=== PATIENT | male | born 1950 | race Caucasian/White ===

== ENCOUNTER 2017-06-16 07:59 | Inpatient (IN) ==
[2017-06-16] MEDS ORDERED: GLUCAGON 1 MG VIAL IM PRN ×2 (09:35)
[2017-06-16] MEDS ORDERED: DEXTROSE 50% 25 GM/50 ML VIAL IV PRN ×2 (09:35)
[2017-06-16] MEDS ORDERED: SODIUM CHLORIDE 0.9% 1,000 ML IV SCH (10:00)
[2017-06-16] MEDS ORDERED: CHLORHEXIDINE 4% SOLN 118 ML BOTTLE TOP SCH (15:00)
[2017-06-16] MEDS: oxyCODONE/ACETAMINOPHEN 5-325 MG TABLET PO PRN (19:50)
[2017-06-16] MEDS ORDERED: ZALEPLON 5 MG CAPSULE PO PRN (21:00)
[2017-06-16] MEDS: CHLORHEXIDINE 0.12% ORAL RINSE 60 ML BOTTLE SWISH/SPIT SCH (22:40)
[2017-06-17 03:11] LABS: Basophils % 0.7 % (0.0-0.8); Eosinophils # 0.2 10*3/uL (0.0-0.87); Hematocrit 36.9 VOL% (42.0-52.0); Hemoglobin 13.4 GM/DL (14.0-18.0); Immature Granulocytes % 0.5 %; Immature Granulocytes Absolute 0.03 #; Lymphocytes # 2.1 10*3/uL (1.4-4.0); Lymphocytes % 37.9 % (21.2-54.2); Mean Corpuscular HGB Conc 36.3 GM/DL (32-36); Mean Corpuscular Hemoglobin 31 PG (27-34); Mean Corpuscular Volume 84.8 FL (87-102); Mean Platelet Volume 10.3 FL (9.6-12.0); Monocytes # 0.4 10*3/uL (0.11-0.8); Monocytes % 7.6 % (1.7-12.7); Neutrophils # 2.8 10*3/uL (1.4-7.4); Neutrophils % 50.3 % (38.7-73.9); Platelet Count 225 T/CUMM (130-400); Red Blood Count 4.35 MC/CUMM (3.8-5.5); White Blood Count 5.7 T/CUMM (4-12)
[2017-06-17 04:05] LABS: ABG Base Excess 0.9 MMOL/L (-2.5-2.5); ABG HCO3 25.1 MMOL/L (20-26); ABG Oxygen Saturation 94.9 % (95-100); ABG PCO2 49.2 MM HG (35-48); ABG PH 7.353 (7.35-7.45); ABG PO2 74.5 MM HG (80-95); ABG TCO2 23.8 MMOL/L (23-27); Allen Test Positive; Pt O2 Delivery Device Room Air
[2017-06-17 04:14] LABS: Alanine Aminotransferase 20 U/L (16-61); Albumin 3.3 G/DL (3.4-5.0); Alkaline Phosphatase 111 U/L (45-117); Aspartate Amino Transferase 9 U/L (0-37); Bilirubin,Total < 0.39 MG/DL (0.2-1.0); Blood Urea Nitrogen 16 MG/DL (7-18); Calcium 8.8 MG/DL (8.5-10.1); Glucose 259 MG/DL (74-106); Osmolality,Calculated 284.7 MOS/KG (273-304); Potassium 4.3 MMOL/L (3.5-5.1); Sodium 138 MMOL/L (136-145); Total Protein 6.3 G/DL (6.4-8.3)
[2017-06-17] MEDS: CHOLESTYRAMINE/ASPARTAME 4 GM PACK PO SCH (09:21)
[2017-06-17] MEDS: sitaGLIPtin 100 MG TABLET PO SCH (09:22)
[2017-06-17] MEDS: METOPROLOL SUCCINATE XL 100 MG TABLET PO SCH (09:22)
[2017-06-17] MEDS: amLODIPine 10 MG TABLET PO SCH (09:22)
[2017-06-17] MEDS: CHLORHEXIDINE 0.12% ORAL RINSE 60 ML BOTTLE SWISH/SPIT SCH ×2 (09:22→21:40)
[2017-06-17] MEDS: ASPIRIN EC 325 MG TABLET PO SCH (09:22)
[2017-06-17] MEDS ORDERED: DIAZEPAM 5 MG TABLET PO ONE (12:52)
[2017-06-17] MEDS ORDERED: FAMOTIDINE 20 MG TABLET PO ONE (12:52)
[2017-06-17] MEDS: INSULIN REGULAR 100 UNIT/ML SUBCUT SCH ×3 (13:15→21:39)
[2017-06-17] MEDS: ATORVASTATIN 40 MG TABLET PO SCH (21:39)
[2017-06-18] MEDS: sitaGLIPtin 100 MG TABLET PO SCH (09:22)
[2017-06-18] MEDS: METOPROLOL SUCCINATE XL 100 MG TABLET PO SCH (09:22)
[2017-06-18] MEDS: ASPIRIN EC 325 MG TABLET PO SCH (09:22)
[2017-06-18] MEDS: amLODIPine 10 MG TABLET PO SCH (09:22)
[2017-06-18] MEDS: CHOLESTYRAMINE/ASPARTAME 4 GM PACK PO SCH (09:22)
[2017-06-18] MEDS: CHLORHEXIDINE 0.12% ORAL RINSE 60 ML BOTTLE SWISH/SPIT SCH ×2 (09:23→20:56)
[2017-06-18] MEDS: INSULIN REGULAR 100 UNIT/ML SUBCUT SCH ×4 (09:23→20:47)
[2017-06-18] MEDS: CHLORHEXIDINE 4% SOLN 118 ML BOTTLE TOP SCH ×3 (15:05→22:00)
[2017-06-18] MEDS: ATORVASTATIN 40 MG TABLET PO SCH (20:47)
[2017-06-18] MEDS: oxyCODONE/ACETAMINOPHEN 5-325 MG TABLET PO PRN (20:58)
[2017-06-19] MEDS ORDERED: SODIUM CHLORIDE 0.9% 1,000 ML IV SCH
[2017-06-19] MEDS ORDERED: VANCOMYCIN 1,000 MG VIAL ONE (04:54)
[2017-06-19] MEDS ORDERED: PAPAVERINE 60 MG/2 ML VIAL ONE (04:54)
[2017-06-19] MEDS ORDERED: DIAZEPAM 5 MG TABLET PO ONE (05:00)
[2017-06-19] MEDS ORDERED: FAMOTIDINE 20 MG TABLET PO ONE (05:00)
[2017-06-19] MEDS: amLODIPine 10 MG TABLET PO SCH ×2 (05:58→10:21)
[2017-06-19] MEDS: METOPROLOL SUCCINATE XL 100 MG TABLET PO SCH ×2 (05:58→10:21)
[2017-06-19] MEDS ORDERED: CEFUROXIME INJ 1,500 MG in SODIUM CHLORIDE 0.9% 50 ML IV ONE (06:00)
[2017-06-19] MEDS ORDERED: TRANEXAMIC ACID 1,000 MG/10 ML VIAL IV ONE (06:03)
[2017-06-19 07:42] LABS: ABG Base Excess 1.2 MMOL/L (-2.5-2.5); ABG HCO3 25.5 MMOL/L (20-26); ABG PCO2 36.3 MM HG (35-48); ABG PH 7.445 (7.35-7.45); ABG TCO2 21.6 MMOL/L (23-27); Glucose Heart Surgery 186 MG/DL (74-106); Hematocrit Heart Surgery 40.2 PERCENT (42-52); Hemoglobin Heart Surgery 13.1 G/DL (14.0-18.0); Ionized Calcium Arterial 1.17 MMOL/L (1.21-1.46); PCO2 Patient Temp Arterial 36.3 MMHG; PH Patient Temp Arterial 7.445; Patient Temperature 37 CELCIUS; Potassium Heart/CVR 4.3 MMOL/L (3.5-5.1); Sodium Heart/CVR 139 MMOL/L (135-145)
[2017-06-19 07:45] LABS: Apearance,Urine CLEAR (Clear); Bilirubin,Urine Negative (Negative); Blood, Urine Small mg/dL (Negative); Glucose,Urine (UA) Negative (Negative); Ketones,Urine Negative (Negative); Mucus,Urine Occasional /LPF (Occasional); Nitrite,Urine Negative (Negative); Protein,Urine Negative; RBC,Urine 3 /HPF (0-4); Squamous Epithelial Cell,Urine Occasional /HPF (0-10); Urine Color Straw (Yellow); Urine Specific Gravity 1.008 (1.001-1.035); Urine Urobilinogen < 2.0 EU/DL (0.2-1.0); WBC,Urine <1 /HPF (0-6)
[2017-06-19 09:03] LABS: Hematocrit Heart Surgery 23.6 PERCENT (42-52); Hemoglobin Heart Surgery 7.6 G/DL (14.0-18.0); PH Patient Temp Venous 7.453; PO2 Patient Temp Venous 29.9 MM HG; VBG Base Excess 1.5 MEQ/L (0-4); VBG HCO3 25.5 MEQ/L (24-28); VBG Oxygen Saturation 73.2 %; VBG PCO2 41.6 MMHG (41-51); VBG PH 7.409; VBG PO2 36.9 MMHG (17-40)
[2017-06-19 09:05] LABS: Potassium Heart/CVR 6.1 MMOL/L (3.5-5.1)
[2017-06-19 09:31] LABS: Hematocrit Heart Surgery 27.8 PERCENT (42-52); PCO2 Patient Temp Venous 35.1 MM HG; PH Patient Temp Venous 7.454; Potassium Heart/CVR 6.3 MMOL/L (3.5-5.1); VBG Base Excess 1.1 MEQ/L (0-4); VBG HCO3 25.2 MEQ/L (24-28); VBG PCO2 42.6 MMHG (41-51); VBG PH 7.396; VBG PO2 46.2 MMHG (17-40)
[2017-06-19] MEDS ORDERED: PHENYLEPHRINE DRIP 40 MG/250 ML PREMIX IV ONE (09:35)
[2017-06-19] MEDS ORDERED: POTASSIUM CHLORIDE RIDER 100 ML IV ONE (09:35)
[2017-06-19] MEDS ORDERED: ALBUMIN 5% 12.5 GM/250 ML VIAL IV ONE (09:36)
[2017-06-19] MEDS ORDERED: EPINEPHrine 1 MG/10 ML SYRINGE ONE (09:54)
[2017-06-19] MEDS ORDERED: LIDOCAINE 100 MG/5 ML SYRINGE ONE (09:55)
[2017-06-19] MEDS ORDERED: SODIUM BICARBONATE 50 MEQ/50 ML SYRINGE IV ONE ×2 (09:57→10:17)
[2017-06-19] MEDS ORDERED: MANNITOL 12.5 GM/50 ML VIAL IV ONE (10:17)
[2017-06-19] MEDS ORDERED: PHENYLEPHRINE DRIP 20 MG/250 ML PREMIX IV ONE ×2 (10:17→12:02)
[2017-06-19] MEDS ORDERED: HEPARIN 10,000 UNIT/10 ML VIAL ONE (10:17)
[2017-06-19] MEDS ORDERED: methylPREDNISolone SOD SUC 1,000 MG/8 ML VIAL ONE (10:17)
[2017-06-19] MEDS ORDERED: MAGNESIUM SULFATE 1 GM/2 ML VIAL ONE (10:17)
[2017-06-19] MEDS ORDERED: PROTAMINE SULFATE 250 MG/25 ML VIAL IV ONE (10:17)
[2017-06-19] MEDS ORDERED: DEXTROSE 5% KCL 20 MEQ 20 MEQ/1,000 ML BAG IV ONE (10:17)
[2017-06-19] MEDS ORDERED: ALBUMIN 25% 25 GM/100 ML VIAL IV ONE (10:17)
[2017-06-19] MEDS ORDERED: FUROSEMIDE 20 MG/2 ML VIAL ONE (10:18)
[2017-06-19] MEDS: ASPIRIN EC 325 MG TABLET PO SCH (10:20)
[2017-06-19] MEDS: INSULIN REGULAR 100 UNIT/ML SUBCUT SCH ×2 (10:20→13:37)
[2017-06-19] MEDS: CHOLESTYRAMINE/ASPARTAME 4 GM PACK PO SCH (10:21)
[2017-06-19] MEDS: sitaGLIPtin 100 MG TABLET PO SCH (10:21)
[2017-06-19] MEDS: CHLORHEXIDINE 4% SOLN 118 ML BOTTLE TOP SCH (10:21)
[2017-06-19] MEDS: CHLORHEXIDINE 0.12% ORAL RINSE 60 ML BOTTLE SWISH/SPIT SCH ×2 (10:21→21:36)
[2017-06-19 10:28] LABS: ABG Base Excess 0.9 MMOL/L (-2.5-2.5); ABG HCO3 25.2 MMOL/L (20-26); ABG Oxygen Saturation 98.6 % (95-100); ABG PCO2 38.2 MM HG (35-48); ABG PH 7.426 (7.35-7.45); ABG TCO2 22.9 MMOL/L (23-27); Glucose Heart Surgery 270 MG/DL (74-106); Hematocrit Heart Surgery 30.1 PERCENT (42-52); Hemoglobin Heart Surgery 9.7 G/DL (14.0-18.0); Ionized Calcium Arterial 1.21 MMOL/L (1.21-1.46); PCO2 Patient Temp Arterial 38.2 MMHG; PH Patient Temp Arterial 7.426; Patient Temperature 37 CELCIUS; Potassium Heart/CVR 5.1 MMOL/L (3.5-5.1); Sodium Heart/CVR 130 MMOL/L (135-145)
[2017-06-19] MEDS ORDERED: THROMBIN TOPICAL (RECOMBINANT) 5,000 UNIT VIAL TOP ONE (10:39)
[2017-06-19] MEDS ORDERED: INSULIN REGULAR DRIP 100 ML IV ONE (10:45)
[2017-06-19] MEDS: LACTATED RINGERS 1,000 ML IV PRN ×2 (12:00→14:38)
[2017-06-19] MEDS ORDERED: PROTAMINE SULFATE 50 MG/5 ML VIAL IV ONE ×2 (12:00)
[2017-06-19] MEDS ORDERED: CALCIUM CHLORIDE 1,000 MG/10 ML VIAL IV ONE (12:02)
[2017-06-19] MEDS ORDERED: SEVOFLURANE 1 UNIT/15 MINUTE INH ONE (12:02)
[2017-06-19] MEDS ORDERED: SUFentanil 250 MCG/5 ML AMP ONE (12:02)
[2017-06-19] MEDS ORDERED: MIDAZOLAM 10 MG/2 ML VIAL ONE (12:03)
[2017-06-19] MEDS ORDERED: VECURONIUM 10 MG VIAL IV ONE (12:03)
[2017-06-19] MEDS ORDERED: ETOMIDATE 20 MG/10 ML VIAL IV ONE (12:03)
[2017-06-19] MEDS ORDERED: SODIUM CHLORIDE 0.9% 200 ML IV ONE (12:03)
[2017-06-19] MEDS ORDERED: NITROGLYCERIN DRIP 50 MG/250 ML BOTTLE IV ONE (12:03)
[2017-06-19] MEDS ORDERED: LACTATED RINGERS 1,000 ML IV ONE (12:03)
[2017-06-19] MEDS: ALBUMIN 5% 12.5 GM in PREMIX 1 EACH IV PRN ×2 (12:30→14:35)
[2017-06-19] MEDS ORDERED: INSULIN REGULAR 100 UNIT/ML IV ONE (12:31)
[2017-06-19] MEDS ORDERED: MAGNESIUM SULF RIDER 4 GM in PREMIX 1 EACH IV PRN (12:31)
[2017-06-19] MEDS ORDERED: MAGNESIUM SULF RIDER 2 GM in PREMIX 1 EACH IV PRN (12:31)
[2017-06-19] MEDS ORDERED: MIDAZOLAM 2 MG/2 ML VIAL IV PRN (12:31)
[2017-06-19] MEDS ORDERED: DEXTROSE 50% 25 GM/50 ML VIAL IV PRN ×2 (12:31)
[2017-06-19] MEDS ORDERED: PHENYLEPHRINE DRIP 40 MG/250 ML PREMIX IV PRN (12:31)
[2017-06-19] MEDS ORDERED: ONDANSETRON 4 MG/2 ML VIAL IV PRN (12:31)
[2017-06-19] MEDS ORDERED: ACETAMINOPHEN 650 MG SUPP RECTAL PRN (12:31)
[2017-06-19] MEDS ORDERED: MORPHINE 10 MG/1 ML VIAL IV PRN (12:31)
[2017-06-19] MEDS ORDERED: NITROPRUSSIDE 100 MG in DEXTROSE 5% 250 ML IV PRN (12:31)
[2017-06-19] MEDS ORDERED: INSULIN REGULAR 100 UNIT/ML IV PRN (12:31)
[2017-06-19] MEDS ORDERED: SODIUM CHLORIDE 0.45% 1,000 ML IV SCH ×2 (12:31)
[2017-06-19] MEDS ORDERED: LACTATED RINGERS 250 ML IV PRN (12:31)
[2017-06-19] MEDS ORDERED: VECURONIUM 10 MG VIAL IV PRN ×2 (12:31)
[2017-06-19] MEDS ORDERED: MIDAZOLAM 10 MG/2 ML VIAL IV PRN (12:31)
[2017-06-19] MEDS ORDERED: CALCIUM CHLORIDE 1,000 MG/10 ML SYRINGE IV PRN (12:31)
[2017-06-19 12:42] LABS: Hematocrit 23.7 VOL% (42.0-52.0); Hemoglobin 8.8 GM/DL (14.0-18.0); Mean Corpuscular Volume 85.9 FL (87-102); Red Blood Count 2.76 MC/CUMM (3.8-5.5); White Blood Count 6.1 T/CUMM (4-12)
[2017-06-19 12:43] LABS: ABG Base Excess -0.5 MMOL/L (-2.5-2.5); ABG PCO2 32.3 MM HG (35-48); ABG PH 7.458 (7.35-7.45); ABG TCO2 21.1 MMOL/L (23-27); Basophils % 0.3 % (0.0-0.8); Eosinophils # 0.1 10*3/uL (0.0-0.87); Eosinophils % 0.8 % (0.00-10.9); Glucose Heart Surgery 245 MG/DL (74-106); Hematocrit Heart Surgery 26.4 PERCENT (42-52); Hemoglobin Heart Surgery 8.5 G/DL (14.0-18.0); Immature Granulocytes % 1.3 %; Immature Granulocytes Absolute 0.08 #; Lymphocytes # 0.8 10*3/uL (1.4-4.0); Lymphocytes % 13.3 % (21.2-54.2); Mean Corpuscular HGB Conc 37.1 GM/DL (32-36); Mean Corpuscular Hemoglobin 32 PG (27-34); Mean Platelet Volume 10.5 FL (9.6-12.0); Monocytes # 0.2 10*3/uL (0.11-0.8); Monocytes % 2.6 % (1.7-12.7); Neutrophils % 81.7 % (38.7-73.9); Platelet Count 207 T/CUMM (130-400); Potassium Heart/CVR 3.9 MMOL/L (3.5-5.1); Red Cell Distribution Width 12.2 % (9.3-17.3)
[2017-06-19] MEDS: POTASSIUM CHLORIDE RIDER 20 MEQ in PREMIX 1 EACH IV PRN ×3 (12:45→18:56)
[2017-06-19 12:49] LABS: INR 1.2; PT Patient Result 12.3 SECS; Partial Thromboplastin Time 30.4 SECS (0-40)
[2017-06-19] MEDS: INSULIN REGULAR DRIP 100 ML IV SCH ×2 (12:51→21:50)
[2017-06-19 12:55] LABS: Albumin 2.4 G/DL (3.4-5.0); Bilirubin,Total 1.2 MG/DL (0.2-1.0); Calcium 7.9 MG/DL (8.5-10.1); Magnesium 1.9 MG/DL (1.8-2.4); Osmolality,Calculated 288.4 MOS/KG (273-304); Potassium 4.3 MMOL/L (3.5-5.1); Total Protein 4.4 G/DL (6.4-8.3)
[2017-06-19] MEDS: KETOROLAC 30 MG/1 ML VIAL IV SCH ×2 (13:20→18:29)
[2017-06-19] MEDS: POTASSIUM CHLORIDE RIDER 10 MEQ in PREMIX 1 EACH IV PRN ×3 (13:20→18:40)
[2017-06-19 13:22] LABS: CKMB % 4.4 %
[2017-06-19 13:29] LABS: Troponin I Only 1.21 NG/ML (0.00-0.045)
[2017-06-19 13:55] LABS: VBG HCO3 22.1 MEQ/L (24-28); VBG Oxygen Saturation 56.9 %; VBG PCO2 47.2 MMHG (41-51); VBG PH 7.321; VBG PO2 31.4 MMHG (17-40)
[2017-06-19 14:00] LABS: ABG Base Excess -2.1 MMOL/L (-2.5-2.5); ABG HCO3 22.7 MMOL/L (20-26); ABG Oxygen Saturation 99.5 % (95-100); ABG PCO2 36.8 MM HG (35-48); ABG PH 7.393 (7.35-7.45); ABG TCO2 20.4 MMOL/L (23-27)
[2017-06-19 14:12] LABS: Glucose Heart Surgery 244 MG/DL (74-106); Potassium Heart/CVR 4.1 MMOL/L (3.5-5.1)
[2017-06-19 15:04] LABS: ABG Base Excess -2.3 MMOL/L (-2.5-2.5); ABG HCO3 22.5 MMOL/L (20-26); ABG Oxygen Saturation 98.6 % (95-100); ABG PCO2 36.8 MM HG (35-48); ABG PH 7.389 (7.35-7.45); ABG TCO2 20.2 MMOL/L (23-27); Glucose Heart Surgery 211 MG/DL (74-106); Hematocrit Heart Surgery 31.4 PERCENT (42-52); Hemoglobin Heart Surgery 10.2 G/DL (14.0-18.0); Potassium Heart/CVR 3.6 MMOL/L (3.5-5.1)
[2017-06-19] MEDS ORDERED: FUROSEMIDE 40 MG/4 ML VIAL ONE (17:23)
[2017-06-19] MEDS ORDERED: FUROSEMIDE 40 MG/4 ML VIAL IV ONE (17:37)
[2017-06-19 18:22] LABS: ABG Base Excess -2.1 MMOL/L (-2.5-2.5); ABG HCO3 22.5 MMOL/L (20-26); ABG Oxygen Saturation 93.7 % (95-100); ABG PCO2 44.8 MM HG (35-48); ABG PH 7.333 (7.35-7.45); ABG PO2 70.2 MM HG (80-95); Glucose Heart Surgery 179 MG/DL (74-106); Hematocrit Heart Surgery 28.6 PERCENT (42-52); Hemoglobin Heart Surgery 9.2 G/DL (14.0-18.0); Potassium Heart/CVR 3.6 MMOL/L (3.5-5.1)
[2017-06-19] MEDS ORDERED: DOBUTamine 500 MG/250 ML PREMIX IV SCH (19:30)
[2017-06-19] MEDS: CEFUROXIME INJ 1,500 MG in SODIUM CHLORIDE 0.9% 50 ML IV SCH (19:55)
[2017-06-19 20:13] LABS: ABG Base Excess -1.5 MMOL/L (-2.5-2.5); ABG HCO3 23.2 MMOL/L (20-26); ABG Oxygen Saturation 98.7 % (95-100); ABG PCO2 41.6 MM HG (35-48); ABG PH 7.366 (7.35-7.45); ABG TCO2 21.9 MMOL/L (23-27); Glucose Heart Surgery 159 MG/DL (74-106); Potassium Heart/CVR 4.4 MMOL/L (3.5-5.1)
[2017-06-19 20:14] LABS: Hematocrit Heart Surgery 29.1 PERCENT (42-52); Hemoglobin Heart Surgery 9.4 G/DL (14.0-18.0)
[2017-06-19 20:35] LABS: CKMB % 3.6 %
[2017-06-19 20:37] LABS: Troponin I Only 2.35 NG/ML (0.00-0.045)
[2017-06-19] MEDS: MORPHINE 2 MG/1 ML SYRINGE IV PRN (21:10)
[2017-06-20 00:39] LABS: ABG Base Excess 0.1 MMOL/L (-2.5-2.5); ABG HCO3 24.4 MMOL/L (20-26); ABG PCO2 38.2 MM HG (35-48); ABG PH 7.423 (7.35-7.45); ABG PO2 126.1 MM HG (80-95); ABG TCO2 25.6 MMOL/L (23-27); Glucose Heart Surgery 104 MG/DL (74-106); Potassium Heart/CVR 4.2 MMOL/L (3.5-5.1)
[2017-06-20] MEDS: KETOROLAC 30 MG/1 ML VIAL IV SCH ×4 (01:03→16:06)
[2017-06-20] MEDS: MORPHINE 2 MG/1 ML SYRINGE IV PRN (01:07)
[2017-06-20 03:16] LABS: ABG Base Excess -1.5 MMOL/L (-2.5-2.5); ABG HCO3 23.1 MMOL/L (20-26); ABG Oxygen Saturation 97.1 % (95-100); ABG PCO2 46.3 MM HG (35-48); ABG PH 7.333 (7.35-7.45); ABG PO2 87.4 MM HG (80-95); ABG TCO2 22.4 MMOL/L (23-27); Glucose Heart Surgery 174 MG/DL (74-106); Hematocrit Heart Surgery 32.5 PERCENT (42-52); Hemoglobin Heart Surgery 10.5 G/DL (14.0-18.0); Potassium Heart/CVR 5.6 MMOL/L (3.5-5.1)
[2017-06-20 04:07] LABS: ABG Base Excess -1.9 MMOL/L (-2.5-2.5); ABG HCO3 22.8 MMOL/L (20-26); ABG PCO2 43.9 MM HG (35-48); ABG PH 7.344 (7.35-7.45); ABG PO2 79.1 MM HG (80-95); ABG TCO2 21.7 MMOL/L (23-27); Glucose Heart Surgery 166 MG/DL (74-106); Hematocrit Heart Surgery 32.9 PERCENT (42-52); Hemoglobin Heart Surgery 10.6 G/DL (14.0-18.0); Potassium Heart/CVR 5.4 MMOL/L (3.5-5.1)
[2017-06-20 04:13] LABS: Basophils % 0.1 % (0.0-0.8); Hematocrit 29.2 VOL% (42.0-52.0); Hemoglobin 10.7 GM/DL (14.0-18.0); Immature Granulocytes % 0.4 %; Immature Granulocytes Absolute 0.04 #; Lymphocytes # 0.7 10*3/uL (1.4-4.0); Lymphocytes % 7.2 % (21.2-54.2); Mean Corpuscular HGB Conc 36.6 GM/DL (32-36); Mean Corpuscular Hemoglobin 32 PG (27-34); Mean Corpuscular Volume 85.9 FL (87-102); Mean Platelet Volume 10.8 FL (9.6-12.0); Monocytes # 0.2 10*3/uL (0.11-0.8); Monocytes % 1.9 % (1.7-12.7); Neutrophils # 8.2 10*3/uL (1.4-7.4); Neutrophils % 90.4 % (38.7-73.9); Platelet Count 123 T/CUMM (130-400); Red Cell Distribution Width 13.2 % (9.3-17.3); White Blood Count 9.1 T/CUMM (4-12)
[2017-06-20 04:45] LABS: Bilirubin,Direct 0.18 MG/DL (0.0-0.20); Bilirubin,Total 0.6 MG/DL (0.2-1.0); Calcium 7.9 MG/DL (8.5-10.1); Magnesium 1.8 MG/DL (1.8-2.4); Osmolality,Calculated 285.4 MOS/KG (273-304); Potassium 5.5 MMOL/L (3.5-5.1); Total Protein 5.4 G/DL (6.4-8.3)
[2017-06-20 04:47] LABS: CKMB % 3.7 %
[2017-06-20 04:54] LABS: ABG Base Excess -1.8 MMOL/L (-2.5-2.5); ABG HCO3 22.9 MMOL/L (20-26); ABG Oxygen Saturation 97.6 % (95-100); ABG PCO2 43.2 MM HG (35-48); ABG PH 7.349 (7.35-7.45); ABG PO2 91.3 MM HG (80-95); ABG TCO2 21.6 MMOL/L (23-27); Glucose Heart Surgery 139 MG/DL (74-106); Hematocrit Heart Surgery 32.8 PERCENT (42-52); Hemoglobin Heart Surgery 10.6 G/DL (14.0-18.0); Potassium Heart/CVR 4.5 MMOL/L (3.5-5.1)
[2017-06-20 05:06] LABS: Troponin I Only 3.78 NG/ML (0.00-0.045)
[2017-06-20 05:58] LABS: ABG Base Excess -1.7 MMOL/L (-2.5-2.5); ABG HCO3 22.9 MMOL/L (20-26); ABG Oxygen Saturation 94.4 % (95-100); ABG PCO2 49.4 MM HG (35-48); ABG PH 7.311 (7.35-7.45); ABG PO2 72.9 MM HG (80-95); ABG TCO2 22.8 MMOL/L (23-27); Glucose Heart Surgery 111 MG/DL (74-106); Hematocrit Heart Surgery 32.4 PERCENT (42-52); Hemoglobin Heart Surgery 10.5 G/DL (14.0-18.0); Potassium Heart/CVR 4.2 MMOL/L (3.5-5.1)
[2017-06-20] MEDS ORDERED: MAGNESIUM SULF RIDER 4 GM in PREMIX 1 EACH IV PRN (11:03)
[2017-06-20] MEDS ORDERED: oxyCODONE/ACETAMINOPHEN 5-325 MG TABLET PO PRN (11:03)
[2017-06-20] MEDS ORDERED: ACETAMINOPHEN 325 MG TABLET PO PRN (11:03)
[2017-06-20] MEDS ORDERED: SODIUM CHLOR 0.45% KCL 20 MEQ 20 MEQ/1,000 ML BAG IV SCH (11:03)
[2017-06-20] MEDS ORDERED: DEXTROSE 50% 25 GM/50 ML VIAL IV PRN ×2 (11:03)
[2017-06-20] MEDS ORDERED: MAGNESIUM HYDROXIDE SUSP 30 ML UDCUP PO PRN (11:03)
[2017-06-20] MEDS ORDERED: GLUCAGON 1 MG VIAL IM PRN ×2 (11:03)
[2017-06-20] MEDS ORDERED: POTASSIUM CHLORIDE 20 MEQ TABLET PO PRN (11:03)
[2017-06-20] MEDS ORDERED: MAGNESIUM SULF RIDER 2 GM in PREMIX 1 EACH IV PRN (11:03)
[2017-06-20] MEDS ORDERED: ALUMINUM/MAGNES/SIMETH MAX STR 30 ML UDCUP PO PRN (11:03)
[2017-06-20] MEDS ORDERED: ONDANSETRON 4 MG/2 ML VIAL IV PRN (11:03)
[2017-06-20] MEDS: sitaGLIPtin 100 MG TABLET PO SCH (12:12)
[2017-06-20] MEDS: ASPIRIN EC 325 MG TABLET PO SCH (12:12)
[2017-06-20] MEDS: METOPROLOL SUCCINATE XL 100 MG TABLET PO SCH (12:13)
[2017-06-20] MEDS: PANTOPRAZOLE 40 MG TABLET PO SCH (12:13)
[2017-06-20] MEDS: FERROUS SULFATE 325 MG TABLET PO SCH (12:13)
[2017-06-20] MEDS: ATORVASTATIN 40 MG TABLET PO SCH (12:14)
[2017-06-20] MEDS: DOCUSATE SODIUM 100 MG CAPSULE PO SCH (12:14)
[2017-06-20] MEDS: amLODIPine 10 MG TABLET PO SCH (12:15)
[2017-06-20] MEDS: CHLORHEXIDINE 0.12% ORAL RINSE 60 ML BOTTLE SWISH/SPIT SCH ×3 (12:15→21:23)
[2017-06-20] MEDS: CEFUROXIME INJ 1,500 MG in SODIUM CHLORIDE 0.9% 50 ML IV SCH (15:25)
[2017-06-20] MEDS: INSULIN REGULAR 100 UNIT/ML SUBCUT SCH ×3 (16:06→23:23)
[2017-06-20] MEDS ORDERED: NON-FORMULARY MEDICATION (Insulin Degludec [Tresiba Flextouch U-100] 100 UNIT) SQ SCH (21:00)
[2017-06-21] MEDS: KETOROLAC 30 MG/1 ML VIAL IV SCH ×5 (01:50→23:38)
[2017-06-21] MEDS ORDERED: FUROSEMIDE 40 MG/4 ML VIAL ONE (01:59)
[2017-06-21] MEDS: INSULIN REGULAR 100 UNIT/ML SUBCUT SCH ×6 (02:17→23:37)
[2017-06-21 03:45] LABS: Basophils % 0.1 % (0.0-0.8); Hematocrit 28.4 VOL% (42.0-52.0); Hemoglobin 9.9 GM/DL (14.0-18.0); Immature Granulocytes % 0.9 %; Immature Granulocytes Absolute 0.12 #; Lymphocytes # 1.4 10*3/uL (1.4-4.0); Lymphocytes % 10.9 % (21.2-54.2); Mean Corpuscular HGB Conc 34.9 GM/DL (32-36); Mean Corpuscular Hemoglobin 31 PG (27-34); Mean Corpuscular Volume 87.4 FL (87-102); Mean Platelet Volume 11.4 FL (9.6-12.0); Monocytes # 1.1 10*3/uL (0.11-0.8); NRBC # 0.02 10*3/uL; Neutrophils # 10.5 10*3/uL (1.4-7.4); Neutrophils % 80.1 % (38.7-73.9); Platelet Count 141 T/CUMM (130-400); Red Blood Count 3.25 MC/CUMM (3.8-5.5); White Blood Count 13.2 T/CUMM (4-12)
[2017-06-21 04:41] LABS: Albumin 3.2 G/DL (3.4-5.0); Bilirubin,Direct 0.13 MG/DL (0.0-0.20); Bilirubin,Indirect 0.8 MG/DL (0.0-1.0); Bilirubin,Total 0.9 MG/DL (0.2-1.0); CKMB % 1.7 %; Calcium 8.2 MG/DL (8.5-10.1); Magnesium 2.3 MG/DL (1.8-2.4); Osmolality,Calculated 290.4 MOS/KG (273-304); Potassium 4.6 MMOL/L (3.5-5.1); Total Protein 5.8 G/DL (6.4-8.3); Troponin I Only 2.51 NG/ML (0.00-0.045)
[2017-06-21 05:18] LABS: Band Neutrophils 7 % (0-10); Giant Platelets Few; Hypochromasia 1+; Lymphocytes 12 % (20-55); Ovalocytes Slight; Platelet Estimate Normal; Segmented Neutrophils 77 % (50-85); Total Cells Counted 100
[2017-06-21] MEDS ORDERED: FUROSEMIDE 40 MG/4 ML VIAL IV ONE (06:00)
[2017-06-21] MEDS: amLODIPine 10 MG TABLET PO SCH (09:54)
[2017-06-21] MEDS: ATORVASTATIN 40 MG TABLET PO SCH (09:55)
[2017-06-21] MEDS: METOPROLOL SUCCINATE XL 100 MG TABLET PO SCH (09:55)
[2017-06-21] MEDS: FERROUS SULFATE 325 MG TABLET PO SCH (09:55)
[2017-06-21] MEDS: sitaGLIPtin 100 MG TABLET PO SCH (09:55)
[2017-06-21] MEDS: CHLORHEXIDINE 0.12% ORAL RINSE 60 ML BOTTLE SWISH/SPIT SCH ×2 (09:55→21:21)
[2017-06-21] MEDS: ASPIRIN EC 325 MG TABLET PO SCH (09:55)
[2017-06-21] MEDS: DOCUSATE SODIUM 100 MG CAPSULE PO SCH (09:55)
[2017-06-21] MEDS: PANTOPRAZOLE 40 MG TABLET PO SCH (09:55)
[2017-06-21] MEDS: ZALEPLON 5 MG CAPSULE PO PRN (21:19)
[2017-06-22] MEDS: KETOROLAC 30 MG/1 ML VIAL IV SCH (05:02)
[2017-06-22 05:45] LABS: Basophils % 0.4 % (0.0-0.8); Eosinophils # 0.2 10*3/uL (0.0-0.87); Eosinophils % 1.8 % (0.00-10.9); Hematocrit 27.1 VOL% (42.0-52.0); Hemoglobin 9.8 GM/DL (14.0-18.0); Immature Granulocytes % 1.7 %; Immature Granulocytes Absolute 0.17 #; Lymphocytes # 1.7 10*3/uL (1.4-4.0); Lymphocytes % 16.8 % (21.2-54.2); Mean Corpuscular HGB Conc 36.2 GM/DL (32-36); Mean Corpuscular Hemoglobin 31 PG (27-34); Mean Corpuscular Volume 86.9 FL (87-102); Mean Platelet Volume 11.1 FL (9.6-12.0); Monocytes # 0.7 10*3/uL (0.11-0.8); Monocytes % 7.1 % (1.7-12.7); NRBC # 0.05 10*3/uL; Neutrophils # 7.1 10*3/uL (1.4-7.4); Neutrophils % 72.2 % (38.7-73.9); Platelet Count 140 T/CUMM (130-400); Red Blood Count 3.12 MC/CUMM (3.8-5.5); Red Cell Distribution Width 12.7 % (9.3-17.3); White Blood Count 9.9 T/CUMM (4-12)
[2017-06-22 06:30] LABS: Alanine Aminotransferase 43 U/L (16-61); Alkaline Phosphatase 78 U/L (45-117); Aspartate Amino Transferase 26 U/L (0-37); Bilirubin,Indirect 0.6 MG/DL (0.0-1.0); Blood Urea Nitrogen 26 MG/DL (7-18); Calcium 8.3 MG/DL (8.5-10.1); Glucose 149 MG/DL (74-106); Magnesium 2.4 MG/DL (1.8-2.4); Osmolality,Calculated 286.4 MOS/KG (273-304); Potassium 4.1 MMOL/L (3.5-5.1); Sodium 140 MMOL/L (136-145); Total Protein 5.5 G/DL (6.4-8.3)
[2017-06-22] MEDS: INSULIN GLARGINE 100 UNIT/ML SUBCUT SCH (09:18)
[2017-06-22] MEDS: CHLORHEXIDINE 0.12% ORAL RINSE 60 ML BOTTLE SWISH/SPIT SCH ×2 (09:19→21:01)
[2017-06-22] MEDS: METOPROLOL SUCCINATE XL 100 MG TABLET PO SCH (09:19)
[2017-06-22] MEDS: FERROUS SULFATE 325 MG TABLET PO SCH (09:19)
[2017-06-22] MEDS: PANTOPRAZOLE 40 MG TABLET PO SCH (09:19)
[2017-06-22] MEDS: ATORVASTATIN 40 MG TABLET PO SCH (09:19)
[2017-06-22] MEDS: ASPIRIN EC 325 MG TABLET PO SCH (09:19)
[2017-06-22] MEDS: amLODIPine 10 MG TABLET PO SCH (09:19)
[2017-06-22] MEDS: INSULIN REGULAR 100 UNIT/ML SUBCUT SCH ×4 (09:19→21:01)
[2017-06-22] MEDS: sitaGLIPtin 100 MG TABLET PO SCH (09:19)
[2017-06-22] MEDS: DOCUSATE SODIUM 100 MG CAPSULE PO SCH (09:20)
[2017-06-22] MEDS: ZALEPLON 5 MG CAPSULE PO PRN (21:01)
[2017-06-23] MEDS: INSULIN REGULAR 100 UNIT/ML SUBCUT SCH (07:17)
[2017-06-23 07:42] VITALS: BP 139/76
[2017-06-23] MEDS: INSULIN GLARGINE 100 UNIT/ML SUBCUT SCH (08:33)
[2017-06-23] MEDS: sitaGLIPtin 100 MG TABLET PO SCH (08:33)
[2017-06-23] MEDS: FERROUS SULFATE 325 MG TABLET PO SCH (08:33)
[2017-06-23] MEDS: PANTOPRAZOLE 40 MG TABLET PO SCH (08:33)
[2017-06-23] MEDS: ATORVASTATIN 40 MG TABLET PO SCH (08:34)
[2017-06-23] MEDS: CHLORHEXIDINE 0.12% ORAL RINSE 60 ML BOTTLE SWISH/SPIT SCH (08:34)
[2017-06-23] MEDS: METOPROLOL SUCCINATE XL 100 MG TABLET PO SCH (08:34)
[2017-06-23] MEDS: DOCUSATE SODIUM 100 MG CAPSULE PO SCH (08:34)
[2017-06-23] MEDS: amLODIPine 10 MG TABLET PO SCH (08:34)
[2017-06-23] MEDS: ASPIRIN EC 325 MG TABLET PO SCH (08:34)
== END 2017-06-23 11:20 | disposition home or self-care (01) | DRG 236 ==
LOC: N.TELES 14:37 → N.CVR 06-19 09:31 → N.TELES 06-20 12:57

== ENCOUNTER 2017-07-08 19:16 | Inpatient (IN) ==
[2017-07-08 20:12] LABS: Basophils # 0.1 10*3/uL (0.0-0.2); Basophils % 0.7 % (0.0-0.8); Eosinophils # 0.5 10*3/uL (0.0-0.87); Eosinophils % 6.9 % (0.00-10.9); Hematocrit 33.8 VOL% (42.0-52.0); Immature Granulocytes % 0.6 %; Immature Granulocytes Absolute 0.04 #; Lymphocytes # 1.3 10*3/uL (1.4-4.0); Lymphocytes % 17.9 % (21.2-54.2); Mean Corpuscular HGB Conc 35.5 GM/DL (32-36); Mean Corpuscular Hemoglobin 31 PG (27-34); Mean Corpuscular Volume 86.9 FL (87-102); Mean Platelet Volume 9.3 FL (9.6-12.0); Monocytes # 0.7 10*3/uL (0.11-0.8); Monocytes % 10.3 % (1.7-12.7); Neutrophils # 4.5 10*3/uL (1.4-7.4); Neutrophils % 63.6 % (38.7-73.9); Platelet Count 509 T/CUMM (130-400); Red Blood Count 3.89 MC/CUMM (3.8-5.5); Red Cell Distribution Width 14.2 % (9.3-17.3); White Blood Count 7.1 T/CUMM (4-12)
[2017-07-08 20:27] LABS: Albumin 2.9 G/DL (3.4-5.0); Bilirubin,Total 0.4 MG/DL (0.2-1.0); Calcium 8.8 MG/DL (8.5-10.1); Osmolality,Calculated 271.1 MOS/KG (273-304); Potassium 3.9 MMOL/L (3.5-5.1); Total Protein 6.3 G/DL (6.4-8.3)
[2017-07-08 20:41] LABS: Lactic Acid 1.2 MMOL/L (0.4-2.0)
[2017-07-08] MEDS ORDERED: DEXTROSE 50% 25 GM/50 ML VIAL IV PRN (20:48)
[2017-07-08] MEDS ORDERED: ONDANSETRON 4 MG/2 ML VIAL IV PRN (20:48)
[2017-07-08] MEDS ORDERED: GLUCAGON 1 MG VIAL IM PRN (20:48)
[2017-07-08] MEDS ORDERED: ACETAMINOPHEN 325 MG TABLET PO PRN (20:48)
[2017-07-08] MEDS: LEVOFLOXACIN INJ 750 MG in PREMIX 1 EACH IV SCH (22:53)
[2017-07-08] MEDS ORDERED: VANCOMYCIN INJ 1,250 MG in SODIUM CHLORIDE 0.45% 250 ML IV SCH (23:00)
[2017-07-09] MEDS ORDERED: LEVOFLOXACIN 500 MG TABLET PO SCH (09:00)
[2017-07-09] MEDS: metFORMIN 850 MG TABLET PO SCH (09:14)
[2017-07-09] MEDS: amLODIPine 10 MG TABLET PO SCH (09:14)
[2017-07-09] MEDS: PANTOPRAZOLE 40 MG TABLET PO SCH (09:14)
[2017-07-09] MEDS: CLOPIDOGREL 75 MG TABLET PO SCH (09:14)
[2017-07-09] MEDS: ATORVASTATIN 40 MG TABLET PO SCH (09:14)
[2017-07-09] MEDS: FUROSEMIDE 40 MG TABLET PO SCH ×2 (09:14→21:05)
[2017-07-09] MEDS: METOPROLOL SUCCINATE XL 100 MG TABLET PO SCH (09:15)
[2017-07-09] MEDS: POTASSIUM CHLORIDE 20 MEQ TABLET PO SCH (09:15)
[2017-07-09] MEDS: sitaGLIPtin 100 MG TABLET PO SCH (09:15)
[2017-07-09] MEDS: VANCOMYCIN INJ 1,250 MG in SODIUM CHLORIDE 0.45% 250 ML IV SCH (18:22)
[2017-07-09] MEDS ORDERED: SODIUM CHLORIDE 0.65% NASAL SPRAY 45 ML BOTTLE BOTH NARES PRN (20:05)
[2017-07-09] MEDS: INSULIN DEGLUDEC 100 UNIT SQ SCH (21:09)
[2017-07-09] MEDS: LEVOFLOXACIN INJ 750 MG in PREMIX 1 EACH IV SCH (21:26)
[2017-07-10 04:40] LABS: Basophils # 0.1 10*3/uL (0.0-0.2); Basophils % 1.8 % (0.0-0.8); Eosinophils # 0.2 10*3/uL (0.0-0.87); Eosinophils % 7.4 % (0.00-10.9); Hematocrit 32.1 VOL% (42.0-52.0); Hemoglobin 11.4 GM/DL (14.0-18.0); Immature Granulocytes % 1.1 %; Immature Granulocytes Absolute 0.03 #; Lymphocytes # 0.7 10*3/uL (1.4-4.0); Lymphocytes % 25.2 % (21.2-54.2); Mean Corpuscular HGB Conc 35.5 GM/DL (32-36); Mean Corpuscular Hemoglobin 31 PG (27-34); Mean Corpuscular Volume 86.3 FL (87-102); Mean Platelet Volume 9.3 FL (9.6-12.0); Monocytes # 0.4 10*3/uL (0.11-0.8); Monocytes % 13.8 % (1.7-12.7); Neutrophils # 1.4 10*3/uL (1.4-7.4); Neutrophils % 50.7 % (38.7-73.9); Platelet Count 422 T/CUMM (130-400); Red Blood Count 3.72 MC/CUMM (3.8-5.5); Red Cell Distribution Width 14.1 % (9.3-17.3); White Blood Count 2.8 T/CUMM (4-12)
[2017-07-10 05:02] LABS: Calcium 8.7 MG/DL (8.5-10.1); Osmolality,Calculated 274.8 MOS/KG (273-304); Potassium 3.9 MMOL/L (3.5-5.1)
[2017-07-10] MEDS: POTASSIUM CHLORIDE 20 MEQ TABLET PO SCH (08:35)
[2017-07-10] MEDS: amLODIPine 10 MG TABLET PO SCH (08:35)
[2017-07-10] MEDS: PANTOPRAZOLE 40 MG TABLET PO SCH (08:35)
[2017-07-10] MEDS: FUROSEMIDE 40 MG TABLET PO SCH ×2 (08:35→21:28)
[2017-07-10] MEDS: sitaGLIPtin 100 MG TABLET PO SCH (08:35)
[2017-07-10] MEDS: metFORMIN 850 MG TABLET PO SCH (08:35)
[2017-07-10] MEDS: CLOPIDOGREL 75 MG TABLET PO SCH (08:35)
[2017-07-10] MEDS: METOPROLOL SUCCINATE XL 100 MG TABLET PO SCH (08:35)
[2017-07-10] MEDS: ATORVASTATIN 40 MG TABLET PO SCH (08:35)
[2017-07-10] MEDS: VANCOMYCIN INJ 1,250 MG in SODIUM CHLORIDE 0.45% 250 ML IV SCH (12:14)
[2017-07-10] MEDS: LEVOFLOXACIN INJ 750 MG in PREMIX 1 EACH IV SCH (21:29)
[2017-07-10] MEDS: INSULIN DEGLUDEC 100 UNIT SQ SCH (22:24)
[2017-07-11] MEDS: VANCOMYCIN INJ 1,250 MG in SODIUM CHLORIDE 0.45% 250 ML IV SCH (06:09)
[2017-07-11] MEDS: ATORVASTATIN 40 MG TABLET PO SCH (09:43)
[2017-07-11] MEDS: POTASSIUM CHLORIDE 20 MEQ TABLET PO SCH (09:43)
[2017-07-11] MEDS: PANTOPRAZOLE 40 MG TABLET PO SCH (09:43)
[2017-07-11] MEDS: metFORMIN 850 MG TABLET PO SCH (09:43)
[2017-07-11] MEDS: sitaGLIPtin 100 MG TABLET PO SCH (09:43)
[2017-07-11] MEDS: FUROSEMIDE 40 MG TABLET PO SCH ×2 (09:43→20:48)
[2017-07-11] MEDS: amLODIPine 10 MG TABLET PO SCH (09:44)
[2017-07-11] MEDS: METOPROLOL SUCCINATE XL 100 MG TABLET PO SCH (09:44)
[2017-07-11] MEDS: LEVOFLOXACIN INJ 750 MG in PREMIX 1 EACH IV SCH (20:47)
[2017-07-11] MEDS: INSULIN DEGLUDEC 100 UNIT SQ SCH (20:48)
[2017-07-12] MEDS: VANCOMYCIN INJ 1,250 MG in SODIUM CHLORIDE 0.45% 250 ML IV SCH (00:58)
[2017-07-12 08:08] VITALS: BP 100/62
[2017-07-12] MEDS: metFORMIN 850 MG TABLET PO SCH (09:24)
[2017-07-12] MEDS: PANTOPRAZOLE 40 MG TABLET PO SCH (09:24)
[2017-07-12] MEDS: ATORVASTATIN 40 MG TABLET PO SCH (09:24)
[2017-07-12] MEDS: FUROSEMIDE 40 MG TABLET PO SCH (09:24)
[2017-07-12] MEDS: amLODIPine 10 MG TABLET PO SCH (09:24)
[2017-07-12] MEDS: sitaGLIPtin 100 MG TABLET PO SCH (09:25)
[2017-07-12] MEDS: METOPROLOL SUCCINATE XL 100 MG TABLET PO SCH (09:25)
[2017-07-12] MEDS: POTASSIUM CHLORIDE 20 MEQ TABLET PO SCH (09:25)
== END 2017-07-12 11:25 | disposition home health service (06) | DRG 863 ==
LOC: N.ED 19:16 → N.EDINP 20:48 → N.TELEN 21:09

== ENCOUNTER 2021-02-08 10:39 | Observation (INO) ==
[2021-02-08] MEDS ORDERED: ONDANSETRON 4 MG/2 ML VIAL IV STA (11:01)
[2021-02-08] MEDS ORDERED: MORPHINE 4 MG/1 ML VIAL IV STA (11:01)
[2021-02-08] MEDS ORDERED: NITROGLYCERIN 2% OINT 1 INCH/GM PACK TOP STA (11:01)
[2021-02-08] MEDS ORDERED: ASPIRIN 325 MG TABLET PO STA (11:01)
[2021-02-08] MEDS ORDERED: HEPARIN 5,000 UNIT/1 ML VIAL IV ONE (11:01)
[2021-02-08 11:11] LABS: Basophils % 0.5 % (0.0-0.8); Eosinophils # 0.1 10*3/uL (0.0-0.87); Eosinophils % 1.6 % (0.00-10.9); Hematocrit 37.1 VOL% (42.0-52.0); Hemoglobin 13.3 GM/DL (14.0-18.0); Immature Granulocytes % 0.5 %; Immature Granulocytes Absolute 0.04 #; Lymphocytes # 1.7 10*3/uL (1.4-4.0); Lymphocytes % 21.8 % (21.2-54.2); Mean Corpuscular HGB Conc 35.8 GM/DL (32-36); Mean Corpuscular Volume 87.5 FL (87-102); Mean Platelet Volume 9.6 FL (9.6-12.0); Monocytes % 6.2 % (1.7-12.7); Neutrophils % 69.4 % (38.7-73.9); Platelet Count 196 T/CUMM (130-400); Red Blood Count 4.24 MC/CUMM (3.8-5.5); Red Cell Distribution Width 12.5 % (9.3-17.3); White Blood Count 7.6 T/CUMM (4-12)
[2021-02-08 11:22] LABS: PT Patient Result 11.3 SECS (10.5-12.0); Partial Thromboplastin Time 27.6 SECS (23.9-33.8)
[2021-02-08 11:30] LABS: Albumin 3.3 G/DL (3.4-5.0); Bilirubin,Total 0.6 MG/DL (0.2-1.0); Calcium 8.3 MG/DL (8.5-10.1); Osmolality,Calculated 283.3 MOS/KG (273-304); Potassium 3.8 MMOL/L (3.5-5.1); Total Protein 6.7 G/DL (6.4-8.2)
[2021-02-08] MEDS ORDERED: KETOROLAC 30 MG/1 ML VIAL IV STA (12:04)
[2021-02-08] MEDS ORDERED: IBUPROFEN 200 MG TABLET PO PRN (12:16)
[2021-02-08] MEDS ORDERED: diphenhydrAMINE CAP 25 MG CAPSULE PO PRN (12:17)
[2021-02-08] MEDS ORDERED: DEXTROSE 50% 25 GM/50 ML VIAL IV PRN (12:18)
[2021-02-08] MEDS ORDERED: GLUCAGON 1 MG VIAL IM PRN (12:18)
[2021-02-08] MEDS ORDERED: INSULIN GLARGINE 100 UNIT/ML SUBCUT PRN (12:23)
[2021-02-08] MEDS: traMADol 50 MG TABLET PO SCH ×2 (13:29→20:57)
[2021-02-08] MEDS: GABAPENTIN 100 MG CAPSULE PO SCH ×3 (13:29→20:57)
[2021-02-08] MEDS: ACETAMINOPHEN 325 MG TABLET PO SCH ×2 (13:29→20:57)
[2021-02-08] MEDS: LIDOCAINE 5% PATCH TRANSDERM SCH (14:55)
[2021-02-08] MEDS ORDERED: METOPROLOL SUCCINATE XL 50 MG TABLET PO ONE (15:57)
[2021-02-08] MEDS ORDERED: amLODIPine 5 MG TABLET PO ONE (16:01)
[2021-02-08] MEDS: FUROSEMIDE 40 MG TABLET PO SCH (16:30)
[2021-02-08] MEDS: INSULIN REGULAR 100 UNIT/ML SUBCUT SCH ×2 (16:50→20:58)
[2021-02-09 06:53] LABS: Basophils % 0.5 % (0.0-0.8); Eosinophils # 0.2 10*3/uL (0.0-0.87); Eosinophils % 2.5 % (0.00-10.9); Hematocrit 39.8 VOL% (42.0-52.0); Hemoglobin 13.9 GM/DL (14.0-18.0); Immature Granulocytes % 0.5 %; Immature Granulocytes Absolute 0.04 #; Lymphocytes # 1.4 10*3/uL (1.4-4.0); Lymphocytes % 16.2 % (21.2-54.2); Mean Corpuscular HGB Conc 34.9 GM/DL (32-36); Mean Corpuscular Volume 89.4 FL (87-102); Mean Platelet Volume 10.1 FL (9.6-12.0); Monocytes % 6.3 % (1.7-12.7); Platelet Count 207 T/CUMM (130-400); Red Blood Count 4.45 MC/CUMM (3.8-5.5); Red Cell Distribution Width 12.6 % (9.3-17.3); White Blood Count 8.8 T/CUMM (4-12)
[2021-02-09 07:24] LABS: Calcium 8.3 MG/DL (8.5-10.1); Potassium 3.7 MMOL/L (3.5-5.1)
[2021-02-09] MEDS ORDERED: POTASSIUM CHLORIDE 20 MEQ TABLET PO ONE (07:39)
[2021-02-09 07:59] VITALS: BP 136/84
[2021-02-09] MEDS: INSULIN REGULAR 100 UNIT/ML SUBCUT SCH (08:00)
[2021-02-09] MEDS: LIDOCAINE 5% PATCH TRANSDERM SCH (08:01)
[2021-02-09] MEDS: traMADol 50 MG TABLET PO SCH (08:01)
[2021-02-09] MEDS: FUROSEMIDE 40 MG TABLET PO SCH (08:02)
[2021-02-09] MEDS: ACETAMINOPHEN 325 MG TABLET PO SCH (08:02)
[2021-02-09] MEDS: GABAPENTIN 100 MG CAPSULE PO SCH (08:03)
[2021-02-09] MEDS ORDERED: amLODIPine 5 MG TABLET PO SCH (09:00)
[2021-02-09] MEDS ORDERED: PANTOPRAZOLE 40 MG TABLET PO SCH (09:00)
[2021-02-09] MEDS ORDERED: sitaGLIPtin 100 MG TABLET PO SCH (09:00)
[2021-02-09] MEDS ORDERED: CLOPIDOGREL 75 MG TABLET PO SCH (09:00)
[2021-02-09] MEDS ORDERED: METOPROLOL SUCCINATE XL 50 MG TABLET PO SCH (09:00)
[2021-02-09] MEDS ORDERED: METOPROLOL SUCCINATE XL 100 MG TABLET PO SCH (09:00)
[2021-02-09] MEDS ORDERED: ASPIRIN EC 81 MG TABLET PO SCH (09:00)
[2021-02-09] MEDS ORDERED: ATORVASTATIN 40 MG TABLET PO SCH (21:00)
== END 2021-02-09 12:06 | disposition home or self-care (01) ==
LOC: EDBD → EDUNIT# → N.EDINP 10:39 → N.ED 10:39 → N.TELES 18:12
PROVIDERS: ADMIT Internal Medicine Cardiovascular Disease; ATTEND Internal Medicine Cardiovascular Disease

== ENCOUNTER 2021-03-16 11:15 | Inpatient (IN) ==
[2021-03-16 11:56] LABS: Basophils % 0.4 % (0.0-0.8); Eosinophils # 0.1 10*3/uL (0.0-0.87); Eosinophils % 1.2 % (0.00-10.9); Hematocrit 40.3 VOL% (42.0-52.0); Hemoglobin 14.2 GM/DL (14.0-18.0); Immature Granulocytes % 0.4 %; Immature Granulocytes Absolute 0.03 #; Lymphocytes # 1.5 10*3/uL (1.4-4.0); Lymphocytes % 19.1 % (21.2-54.2); Mean Corpuscular HGB Conc 35.2 GM/DL (32-36); Mean Corpuscular Volume 87.2 FL (87-102); Mean Platelet Volume 9.5 FL (9.6-12.0); Monocytes % 6.1 % (1.7-12.7); Neutrophils % 72.8 % (38.7-73.9); Platelet Count 205 T/CUMM (130-400); Red Blood Count 4.62 MC/CUMM (3.8-5.5); Red Cell Distribution Width 12.4 % (9.3-17.3); White Blood Count 7.7 T/CUMM (4-12)
[2021-03-16 12:34] LABS: Albumin 3.6 G/DL (3.4-5.0); Bilirubin,Total 0.5 MG/DL (0.20-1.00); Calcium 8.9 MG/DL (8.5-10.1); Osmolality,Calculated 272.1 MOS/KG (273-304); Potassium 3.7 MMOL/L (3.5-5.1); Total Protein 7.2 G/DL (6.4-8.2)
[2021-03-16] MEDS ORDERED: LABETALOL 20 MG/4 ML SYRINGE IV ONE (13:33)
[2021-03-16] MEDS ORDERED: LABETALOL 20 MG/4 ML SYRINGE IV STA (13:35)
[2021-03-16] MEDS ORDERED: DEXTROSE 50% 25 GM/50 ML VIAL IV PRN ×2 (14:23)
[2021-03-16] MEDS ORDERED: GLUCAGON 1 MG VIAL IM PRN ×2 (14:23)
[2021-03-16] MEDS ORDERED: hydrALAZINE 20 MG/1 ML VIAL IV PRN ×2 (14:30→16:15)
[2021-03-16] MEDS: GABAPENTIN 100 MG CAPSULE PO SCH ×2 (17:25→21:28)
[2021-03-16] MEDS: INSULIN LISPRO 100 UNIT/ML SUBCUT SCH ×2 (17:28→21:06)
[2021-03-16 19:37] LABS: Bilirubin,Urine Negative (Negative); Blood, Urine Negative (Negative); Glucose,Urine (UA) Negative (Negative); Hyaline Casts,Urine 1 /LPF (0-3); Ketones,Urine Negative (Negative); Nitrite,Urine Negative (Negative); Protein,Urine Negative; RBC,Urine 2 /HPF (0-4); Urine Appearance CLEAR (Clear); Urine Color Colorless (Yellow); Urine Specific Gravity 1.002 (1.001-1.035); Urine Urobilinogen < 2.0 EU/DL (0.2-1.0)
[2021-03-16] MEDS: ENOXAPARIN 40 MG/0.4 ML SYRINGE SUBCUT SCH (21:27)
[2021-03-16] MEDS: traMADol 50 MG TABLET PO SCH (21:28)
[2021-03-17 04:41] LABS: Basophils % 0.4 % (0.0-0.8); Eosinophils # 0.1 10*3/uL (0.0-0.87); Eosinophils % 1.6 % (0.00-10.9); Hematocrit 40.2 VOL% (42.0-52.0); Hemoglobin 14.3 GM/DL (14.0-18.0); Immature Granulocytes % 0.3 %; Immature Granulocytes Absolute 0.02 #; Lymphocytes # 1.7 10*3/uL (1.4-4.0); Lymphocytes % 21.9 % (21.2-54.2); Mean Corpuscular HGB Conc 35.6 GM/DL (32-36); Mean Platelet Volume 9.8 FL (9.6-12.0); Neutrophils % 68.8 % (38.7-73.9); Platelet Count 213 T/CUMM (130-400); Red Blood Count 4.57 MC/CUMM (3.8-5.5); Red Cell Distribution Width 12.6 % (9.3-17.3); White Blood Count 7.5 T/CUMM (4-12)
[2021-03-17 05:07] LABS: Calcium 8.8 MG/DL (8.5-10.1); Osmolality,Calculated 283.1 MOS/KG (273-304); Potassium 3.7 MMOL/L (3.5-5.1)
[2021-03-17] MEDS: INSULIN LISPRO 100 UNIT/ML SUBCUT SCH ×4 (07:30→20:53)
[2021-03-17] MEDS ORDERED: FUROSEMIDE 40 MG TABLET PO SCH (09:00)
[2021-03-17] MEDS ORDERED: ACETAMINOPHEN 325 MG TABLET PO PRN (09:53)
[2021-03-17] MEDS ORDERED: IBUPROFEN 200 MG TABLET PO PRN (09:53)
[2021-03-17] MEDS: ATORVASTATIN 40 MG TABLET PO SCH (10:16)
[2021-03-17] MEDS: GABAPENTIN 100 MG CAPSULE PO SCH ×3 (10:16→20:52)
[2021-03-17] MEDS: CLOPIDOGREL 75 MG TABLET PO SCH (10:16)
[2021-03-17] MEDS: PANTOPRAZOLE 40 MG TABLET PO SCH (10:17)
[2021-03-17] MEDS: traMADol 50 MG TABLET PO SCH ×2 (10:21→20:53)
[2021-03-17] MEDS ORDERED: INSULIN GLARGINE 100 UNIT/ML SUBCUT PRN (11:53)
[2021-03-17] MEDS ORDERED: NITROGLYCERIN SL 0.4 MG TABLET SL PRN (12:05)
[2021-03-17] MEDS ORDERED: DIAZEPAM 5 MG TABLET PO ONE (12:18)
[2021-03-17] MEDS ORDERED: POTASSIUM CHLORIDE RIDER 10 MEQ/100 ML PREMIX IV PRN (12:18)
[2021-03-17] MEDS ORDERED: diphenhydrAMINE CAP 25 MG CAPSULE PO ONE (12:18)
[2021-03-17] MEDS ORDERED: HEPARIN/NACL 0.9% 2 UNITS/ML 2,000 UNIT/1,000 ML BAG IV ONE (12:34)
[2021-03-17] MEDS ORDERED: LIDOCAINE 1% 20 ML VIAL ONE (12:34)
[2021-03-17] MEDS: carvediloL 12.5 MG TABLET PO SCH ×2 (13:13→20:52)
[2021-03-17] MEDS: ASPIRIN EC 81 MG TABLET PO SCH (13:13)
[2021-03-17] MEDS ORDERED: MIDAZOLAM 2 MG/2 ML VIAL ONE (13:32)
[2021-03-17] MEDS ORDERED: HYDROmorphone 2 MG/1 ML VIAL ONE (13:32)
[2021-03-17] MEDS: SODIUM CHLORIDE 0.45% 1,000 ML IV SCH ×2 (13:39→21:31)
[2021-03-17] MEDS ORDERED: LABETALOL 20 MG/4 ML SYRINGE IV ONE (14:01)
[2021-03-17] MEDS ORDERED: diphenhydrAMINE 50 MG/1 ML VIAL ONE (14:06)
[2021-03-17] MEDS ORDERED: ZALEPLON 5 MG CAPSULE PO PRN (14:31)
[2021-03-17] MEDS: ENOXAPARIN 40 MG/0.4 ML SYRINGE SUBCUT SCH (20:53)
[2021-03-17] MEDS ORDERED: carvediloL 12.5 MG TABLET PO SCH (21:00)
[2021-03-18] MEDS: SODIUM CHLORIDE 0.45% 1,000 ML IV SCH ×3 (03:52→20:21)
[2021-03-18 05:44] LABS: Basophils % 0.3 % (0.0-0.8); Eosinophils # 0.1 10*3/uL (0.0-0.87); Eosinophils % 0.7 % (0.00-10.9); Hematocrit 38.2 VOL% (42.0-52.0); Hemoglobin 13.5 GM/DL (14.0-18.0); Immature Granulocytes % 0.3 %; Immature Granulocytes Absolute 0.03 #; Lymphocytes # 1.7 10*3/uL (1.4-4.0); Lymphocytes % 17.6 % (21.2-54.2); Mean Corpuscular HGB Conc 35.3 GM/DL (32-36); Mean Corpuscular Volume 89.5 FL (87-102); Mean Platelet Volume 10.1 FL (9.6-12.0); Monocytes % 6.8 % (1.7-12.7); Neutrophils % 74.3 % (38.7-73.9); Platelet Count 210 T/CUMM (130-400); Red Blood Count 4.27 MC/CUMM (3.8-5.5); Red Cell Distribution Width 12.9 % (9.3-17.3); White Blood Count 9.6 T/CUMM (4-12)
[2021-03-18 06:06] LABS: Calcium 8.8 MG/DL (8.5-10.1); Osmolality,Calculated 283.3 MOS/KG (273-304); Potassium 4.2 MMOL/L (3.5-5.1)
[2021-03-18 06:09] LABS: Risk Ratio 4.19
[2021-03-18] MEDS ORDERED: NON-FORMULARY MEDICATION (Omeprazole 20 mg Capsule,Delayed Release(Dr/Ec)) PO SCH (09:00)
[2021-03-18] MEDS: ASPIRIN EC 81 MG TABLET PO SCH (10:10)
[2021-03-18] MEDS: CLOPIDOGREL 75 MG TABLET PO SCH (10:11)
[2021-03-18] MEDS: ATORVASTATIN 40 MG TABLET PO SCH (10:11)
[2021-03-18] MEDS: sitaGLIPtin 100 MG TABLET PO SCH (10:11)
[2021-03-18] MEDS: carvediloL 12.5 MG TABLET PO SCH ×2 (10:11→20:20)
[2021-03-18] MEDS: GABAPENTIN 100 MG CAPSULE PO SCH ×3 (10:11→20:20)
[2021-03-18] MEDS: traMADol 50 MG TABLET PO SCH ×2 (10:12→20:20)
[2021-03-18] MEDS: PANTOPRAZOLE 40 MG TABLET PO SCH (10:12)
[2021-03-18] MEDS: INSULIN LISPRO 100 UNIT/ML SUBCUT SCH ×4 (10:14→20:21)
[2021-03-18] MEDS: ENOXAPARIN 40 MG/0.4 ML SYRINGE SUBCUT SCH (20:20)
[2021-03-19] MEDS: SODIUM CHLORIDE 0.45% 1,000 ML IV SCH (04:27)
[2021-03-19 06:18] LABS: Basophils % 0.4 % (0.0-0.8); Eosinophils # 0.2 10*3/uL (0.0-0.87); Eosinophils % 2.3 % (0.00-10.9); Hematocrit 38.2 VOL% (42.0-52.0); Hemoglobin 13.1 GM/DL (14.0-18.0); Immature Granulocytes % 0.9 %; Immature Granulocytes Absolute 0.06 #; Lymphocytes # 1.8 10*3/uL (1.4-4.0); Lymphocytes % 26.1 % (21.2-54.2); Mean Corpuscular HGB Conc 34.3 GM/DL (32-36); Mean Corpuscular Volume 90.5 FL (87-102); Mean Platelet Volume 10.2 FL (9.6-12.0); Monocytes % 7.9 % (1.7-12.7); Neutrophils % 62.4 % (38.7-73.9); Platelet Count 207 T/CUMM (130-400); Red Blood Count 4.22 MC/CUMM (3.8-5.5); Red Cell Distribution Width 12.5 % (9.3-17.3); White Blood Count 6.9 T/CUMM (4-12)
[2021-03-19 06:31] LABS: Calcium 8.6 MG/DL (8.5-10.1); Osmolality,Calculated 284.4 MOS/KG (273-304); Potassium 4.3 MMOL/L (3.5-5.1)
[2021-03-19] MEDS: INSULIN LISPRO 100 UNIT/ML SUBCUT SCH ×2 (08:30→12:40)
[2021-03-19] MEDS: ASPIRIN EC 81 MG TABLET PO SCH (09:25)
[2021-03-19] MEDS: PANTOPRAZOLE 40 MG TABLET PO SCH (09:26)
[2021-03-19] MEDS: carvediloL 12.5 MG TABLET PO SCH (09:26)
[2021-03-19] MEDS: ATORVASTATIN 40 MG TABLET PO SCH (09:26)
[2021-03-19] MEDS: sitaGLIPtin 100 MG TABLET PO SCH (09:26)
[2021-03-19] MEDS: traMADol 50 MG TABLET PO SCH (09:26)
[2021-03-19] MEDS: GABAPENTIN 100 MG CAPSULE PO SCH (09:26)
[2021-03-19] MEDS: CLOPIDOGREL 75 MG TABLET PO SCH (09:26)
[2021-03-19 12:29] VITALS: BP 144/78
[2021-03-19] MEDS ORDERED: NEPAFENAC 0.1% OPH SOLN 3 ML BOTTLE LEFT EYE SCH (15:00)
[2021-03-19] MEDS ORDERED: APIXABAN 2.5 MG TABLET PO SCH (21:00)
== END 2021-03-19 13:11 | DRG 683 ==
LOC: N.ED 11:15 → N.EDINP 11:15 → SUATTDRO 14:23 → N.EDINP 03-17 11:32 → N.TELES 03-17 11:49
PROVIDERS: ADMIT Internal Medicine; ATTEND Internal Medicine Geriatric Medicine

== ENCOUNTER 2022-01-11 06:49 | Inpatient (IN) ==
[2022-01-06 14:07] LABS: Basophils % 0.5 % (0.0-0.8); Eosinophils # 0.2 10*3/uL (0.0-0.87); Eosinophils % 2.7 % (0.00-10.9); Hematocrit 39.2 VOL% (42.0-52.0); Hemoglobin 13.6 GM/DL (14.0-18.0); Immature Granulocytes % 0.6 %; Immature Granulocytes Absolute 0.04 #; Lymphocytes # 1.2 10*3/uL (1.4-4.0); Lymphocytes % 17.9 % (21.2-54.2); Mean Corpuscular HGB Conc 34.7 GM/DL (32-36); Mean Corpuscular Volume 87.7 FL (87-102); Mean Platelet Volume 10.2 FL (9.6-12.0); Monocytes # 0.5 10*3/uL (0.11-0.8); Monocytes % 7.1 % (1.7-12.7); Neutrophils % 71.2 % (38.7-73.9); Platelet Count 212 T/CUMM (130-400); Red Blood Count 4.47 MC/CUMM (3.8-5.5); Red Cell Distribution Width 12.7 % (9.3-17.3); White Blood Count 6.6 T/CUMM (4-12)
[2022-01-06 14:17] LABS: Albumin 3.2 G/DL (3.4-5.0); Bilirubin,Total 0.5 MG/DL (0.20-1.00); Calcium 8.4 MG/DL (8.5-10.1); Osmolality,Calculated 285.4 MOS/KG (273-304); PT Patient Result 10.6 SECS (10.5-12.0); Partial Thromboplastin Time 27.6 SECS (23.8-32.1); Potassium 4.2 MMOL/L (3.5-5.1); Total Protein 6.4 G/DL (6.4-8.2)
[2022-01-11] MEDS ORDERED: HEPARIN/NACL 0.9% 2 UNITS/ML 1,000 UNIT/500 ML BAG IV ONE (06:52)
[2022-01-11] MEDS ORDERED: NITROGLYCERIN DRIP 50 MG/250 ML BOTTLE IV ONE (06:52)
[2022-01-11] MEDS ORDERED: PHENYLEPHRINE DRIP 20 MG/250 ML PREMIX IV ONE (06:52)
[2022-01-11] MEDS ORDERED: LACTATED RINGERS 1,000 ML IV SCH (08:00)
[2022-01-11] MEDS ORDERED: TISSUE ADHESIVE 1 EACH APPLICATOR TOP ONE (09:21)
[2022-01-11] MEDS ORDERED: HEPARIN 5,000 UNIT/1 ML VIAL ONE (09:21)
[2022-01-11] MEDS ORDERED: propofoL 200 MG/20 ML VIAL IV ONE (09:26)
[2022-01-11] MEDS ORDERED: LIDOCAINE 2% 5 ML VIAL ONE ×2 (09:26→11:35)
[2022-01-11] MEDS ORDERED: SEVOFLURANE 1 UNIT/15 MINUTE INH ONE ×3 (09:26→11:35)
[2022-01-11] MEDS ORDERED: ROCURONIUM 50 MG/5 ML VIAL IV ONE (09:26)
[2022-01-11] MEDS ORDERED: fentaNYL 100 MCG/2 ML VIAL ONE (09:27)
[2022-01-11] MEDS ORDERED: PROTAMINE SULFATE 50 MG/5 ML VIAL IV ONE (11:30)
[2022-01-11] MEDS ORDERED: HEPARIN 10,000 UNIT/10 ML VIAL ONE (11:30)
[2022-01-11] MEDS ORDERED: GLYCOPYRROLATE 0.4 MG/2 ML VIAL ONE (11:31)
[2022-01-11] MEDS ORDERED: PHENYLEPHRINE 1 MG/10 ML SYRINGE IV ONE (11:31)
[2022-01-11] MEDS ORDERED: NEOSTIGMINE 10 MG/10 ML VIAL ONE (11:31)
[2022-01-11] MEDS ORDERED: GLUCAGON 1 MG VIAL IM PRN (11:34)
[2022-01-11] MEDS ORDERED: oxyCODONE/ACETAMINOPHEN 5-325 MG TABLET PO PRN ×2 (11:34)
[2022-01-11] MEDS ORDERED: PROMETHAZINE 25 MG/1 ML VIAL IM PRN (11:34)
[2022-01-11] MEDS ORDERED: HYDROmorphone 1 MG/1 ML SYRINGE IV PRN ×2 (11:34)
[2022-01-11] MEDS ORDERED: NALOXONE 0.4 MG/ML VIAL IV PRN (11:34)
[2022-01-11] MEDS ORDERED: ONDANSETRON 4 MG/2 ML VIAL IV PRN (11:34)
[2022-01-11] MEDS ORDERED: NITROGLYCERIN SL 0.4 MG TABLET SL PRN (11:37)
[2022-01-11] MEDS ORDERED: DEXTROSE 10% 250 ML BAG IV PRN (11:46)
[2022-01-11] MEDS ORDERED: PHENYLEPHRINE DRIP 40 MG/250 ML PREMIX IV SCH (12:00)
[2022-01-11] MEDS ORDERED: NITROPRUSSIDE 100 MG in DEXTROSE 5% 250 ML IV SCH (12:00)
[2022-01-11] MEDS: LACTATED RINGERS 1,000 ML IV SCH ×2 (12:51→22:17)
[2022-01-11] MEDS ORDERED: NITROGLYCERIN DRIP 50 MG/250 ML BOTTLE IV PRN (12:51)
[2022-01-11 13:08] VITALS: BP 156/74
[2022-01-11] MEDS: INSULIN REGULAR 100 UNIT/ML SUBCUT SCH ×2 (13:20→17:42)
[2022-01-11] MEDS: carvediloL 12.5 MG TABLET PO SCH (16:59)
[2022-01-11] MEDS ORDERED: ATORVASTATIN 40 MG TABLET PO SCH (21:00)
[2022-01-12] MEDS: INSULIN REGULAR 100 UNIT/ML SUBCUT SCH ×2 (00:40→06:25)
[2022-01-12] MEDS: carvediloL 12.5 MG TABLET PO SCH (07:48)
[2022-01-12] MEDS ORDERED: CLOPIDOGREL 75 MG TABLET PO SCH ×2 (09:00)
[2022-01-12] MEDS ORDERED: PANTOPRAZOLE 40 MG TABLET PO SCH (09:00)
[2022-01-12] MEDS ORDERED: ASPIRIN EC 81 MG TABLET PO SCH ×2 (09:00)
[2022-01-12] MEDS ORDERED: sitaGLIPtin 100 MG TABLET PO SCH (09:00)
[2022-01-12] MEDS ORDERED: INSULIN REGULAR 100 UNIT/ML SUBCUT SCH (11:30)
== END 2022-01-12 13:16 | disposition home or self-care (01) | DRG 39 ==
LOC: N.SDSINP 06:49 → N.ICU 10:22
PROVIDERS: ADMIT Surgery; ATTEND Surgery

== ENCOUNTER 2022-06-21 14:30 | Inpatient (IN) ==
[2022-06-21 15:13] LABS: Basophils # 0.1 10*3/uL (0.0-0.2); Basophils % 0.5 % (0.0-0.8); Eosinophils # 0.2 10*3/uL (0.0-0.87); Eosinophils % 1.6 % (0.00-10.9); Hematocrit 41.8 VOL% (42.0-52.0); Hemoglobin 14.4 GM/DL (14.0-18.0); Immature Granulocytes % 1.2 %; Immature Granulocytes Absolute 0.14 #; Lymphocytes # 1.5 10*3/uL (1.4-4.0); Lymphocytes % 12.9 % (21.2-54.2); Mean Corpuscular HGB Conc 34.4 GM/DL (32-36); Mean Corpuscular Volume 85.8 FL (87-102); Mean Platelet Volume 9.6 FL (9.6-12.0); Monocytes # 0.5 10*3/uL (0.11-0.8); Monocytes % 4.5 % (1.7-12.7); Neutrophils % 79.3 % (38.7-73.9); Platelet Count 251 T/CUMM (130-400); Red Blood Count 4.87 MC/CUMM (3.8-5.5); Red Cell Distribution Width 12.4 % (9.3-17.3); White Blood Count 11.4 T/CUMM (4-12)
[2022-06-21 15:21] LABS: PT Patient Result 10.8 SECS (10.1-12.1); Partial Thromboplastin Time 28.2 SECS (23.7-32.9)
[2022-06-21 15:29] LABS: Albumin 3.7 G/DL (3.4-5.0); Bilirubin,Total 0.6 MG/DL (0.20-1.00); CKMB % 1.99 %; Calcium 9.2 MG/DL (8.5-10.1); High Sensitive Troponin I* 134.9 ng/L (0-78); Osmolality,Calculated 281.5 MOS/KG (273-304); Potassium 4.3 MMOL/L (3.5-5.1); Total Protein 7.9 G/DL (6.4-8.2)
[2022-06-21] MEDS ORDERED: ONDANSETRON 4 MG/2 ML VIAL IV PRN (17:12)
[2022-06-21] MEDS ORDERED: ACETAMINOPHEN 325 MG TABLET PO PRN (17:12)
[2022-06-21] MEDS: LACTATED RINGERS 1,000 ML IV SCH (18:59)
[2022-06-21 20:10] LABS: PT Patient Result 11.4 SECS (10.1-12.1); Partial Thromboplastin Time 28.3 SECS (23.7-32.9)
[2022-06-21] MEDS: MORPHINE 2 MG/1 ML SYRINGE IV PRN (20:29)
[2022-06-21] MEDS: ALBUTEROL/IPRATROPIUM 3 ML NEB RESP TX SCH (21:16)
[2022-06-21] MEDS: DOCUSATE SODIUM 100 MG CAPSULE PO SCH (21:26)
[2022-06-21] MEDS ORDERED: NITROGLYCERIN SL 0.4 MG TABLET SL PRN (21:37)
[2022-06-22] MEDS: ALBUTEROL/IPRATROPIUM 3 ML NEB RESP TX SCH ×4 (01:45→17:37)
[2022-06-22] MEDS: LACTATED RINGERS 1,000 ML IV SCH ×3 (04:25→20:50)
[2022-06-22 05:41] LABS: Basophils % 0.2 % (0.0-0.8); Eosinophils # 0.1 10*3/uL (0.0-0.87); Eosinophils % 1.6 % (0.00-10.9); Hematocrit 33.8 VOL% (42.0-52.0); Hemoglobin 11.8 GM/DL (14.0-18.0); Immature Granulocytes % 0.6 %; Immature Granulocytes Absolute 0.05 #; Lymphocytes # 1.6 10*3/uL (1.4-4.0); Lymphocytes % 18.8 % (21.2-54.2); Mean Corpuscular HGB Conc 34.9 GM/DL (32-36); Mean Corpuscular Volume 86.4 FL (87-102); Mean Platelet Volume 9.8 FL (9.6-12.0); Monocytes # 0.6 10*3/uL (0.11-0.8); Monocytes % 6.8 % (1.7-12.7); Platelet Count 209 T/CUMM (130-400); Red Blood Count 3.91 MC/CUMM (3.8-5.5); Red Cell Distribution Width 12.5 % (9.3-17.3); White Blood Count 8.3 T/CUMM (4-12)
[2022-06-22 06:00] LABS: Calcium 8.8 MG/DL (8.5-10.1); Osmolality,Calculated 281.5 MOS/KG (273-304); Potassium 4.1 MMOL/L (3.5-5.1)
[2022-06-22] MEDS: MORPHINE 2 MG/1 ML SYRINGE IV PRN (06:46)
[2022-06-22] MEDS: metFORMIN 500 MG TABLET PO SCH ×2 (08:58→17:03)
[2022-06-22] MEDS: DOCUSATE SODIUM 100 MG CAPSULE PO SCH ×2 (08:59→20:47)
[2022-06-22] MEDS: sitaGLIPtin 100 MG TABLET PO SCH (09:00)
[2022-06-22] MEDS: carvediloL 25 MG TABLET PO SCH ×2 (09:01→17:03)
[2022-06-22] MEDS: PANTOPRAZOLE 40 MG TABLET PO SCH (09:01)
[2022-06-22] MEDS: ATORVASTATIN 40 MG TABLET PO SCH (09:01)
[2022-06-22] MEDS ORDERED: HYDROmorphone 1 MG/1 ML SYRINGE IV PRN ×2 (09:36)
[2022-06-22] MEDS ORDERED: ONDANSETRON 4 MG/2 ML VIAL IV PRN (09:37)
[2022-06-22] MEDS ORDERED: DEXTROSE 10% 250 ML BAG IV PRN (09:42)
[2022-06-22] MEDS ORDERED: GLUCAGON 1 MG VIAL IM PRN (09:42)
[2022-06-22] MEDS: INSULIN LISPRO 100 UNIT/ML SUBCUT SCH ×3 (13:20→20:48)
[2022-06-22] MEDS ORDERED: NON-FORMULARY MEDICATION (Insulin Degludec [Tresiba Flextouch U-100] 100 UNIT/ML insulin p SQ SCH (21:00)
[2022-06-23] MEDS: ALBUTEROL/IPRATROPIUM 3 ML NEB RESP TX SCH ×4 (00:16→19:22)
[2022-06-23] MEDS: LACTATED RINGERS 1,000 ML IV SCH ×3 (04:27→20:06)
[2022-06-23 05:12] LABS: Basophils % 0.4 % (0.0-0.8); Eosinophils # 0.1 10*3/uL (0.0-0.87); Eosinophils % 1.8 % (0.00-10.9); Hematocrit 33.6 VOL% (42.0-52.0); Hemoglobin 11.4 GM/DL (14.0-18.0); Immature Granulocytes % 0.9 %; Immature Granulocytes Absolute 0.07 #; Lymphocytes # 1.1 10*3/uL (1.4-4.0); Lymphocytes % 14.6 % (21.2-54.2); Mean Corpuscular HGB Conc 33.9 GM/DL (32-36); Mean Corpuscular Volume 86.8 FL (87-102); Mean Platelet Volume 9.9 FL (9.6-12.0); Monocytes # 0.6 10*3/uL (0.11-0.8); Monocytes % 7.3 % (1.7-12.7); Platelet Count 190 T/CUMM (130-400); Red Blood Count 3.87 MC/CUMM (3.8-5.5); Red Cell Distribution Width 12.4 % (9.3-17.3); White Blood Count 7.7 T/CUMM (4-12)
[2022-06-23 05:31] LABS: Albumin 2.8 G/DL (3.4-5.0); Bilirubin,Total 0.5 MG/DL (0.20-1.00); Calcium 8.5 MG/DL (8.5-10.1); Osmolality,Calculated 283.3 MOS/KG (273-304); Potassium 4.2 MMOL/L (3.5-5.1); Total Protein 6.3 G/DL (6.4-8.2)
[2022-06-23] MEDS: INSULIN LISPRO 100 UNIT/ML SUBCUT SCH ×4 (07:13→20:06)
[2022-06-23] MEDS: ATORVASTATIN 40 MG TABLET PO SCH (08:15)
[2022-06-23] MEDS: ASPIRIN EC 81 MG TABLET PO SCH (08:15)
[2022-06-23] MEDS: sitaGLIPtin 100 MG TABLET PO SCH (08:15)
[2022-06-23] MEDS: carvediloL 25 MG TABLET PO SCH ×2 (08:15→16:24)
[2022-06-23] MEDS: metFORMIN 500 MG TABLET PO SCH ×2 (08:16→16:24)
[2022-06-23] MEDS: DOCUSATE SODIUM 100 MG CAPSULE PO SCH ×2 (08:16→20:06)
[2022-06-23] MEDS: PANTOPRAZOLE 40 MG TABLET PO SCH (08:16)
[2022-06-23 12:29] LABS: Bilirubin,Urine Negative (Negative); Blood, Urine Negative (Negative); Glucose,Urine (UA) 50 mg/dL (Negative); Ketones,Urine Negative (Negative); Nitrite,Urine Negative (Negative); Protein,Urine Negative (Negative); Urine Appearance CLEAR (Clear); Urine Color Yellow (Yellow); Urine Urobilinogen < 2.0 eU/dL (<2.0)
[2022-06-24] MEDS: ALBUTEROL/IPRATROPIUM 3 ML NEB RESP TX SCH ×3 (00:12→14:17)
[2022-06-24] MEDS: LACTATED RINGERS 1,000 ML IV SCH (03:37)
[2022-06-24] MEDS: INSULIN LISPRO 100 UNIT/ML SUBCUT SCH ×2 (07:27→12:57)
[2022-06-24] MEDS: PANTOPRAZOLE 40 MG TABLET PO SCH (08:09)
[2022-06-24] MEDS: metFORMIN 500 MG TABLET PO SCH (08:09)
[2022-06-24] MEDS: ASPIRIN EC 81 MG TABLET PO SCH (08:10)
[2022-06-24] MEDS: sitaGLIPtin 100 MG TABLET PO SCH (08:10)
[2022-06-24] MEDS: carvediloL 25 MG TABLET PO SCH (08:10)
[2022-06-24] MEDS: ATORVASTATIN 40 MG TABLET PO SCH (08:10)
[2022-06-24] MEDS: DOCUSATE SODIUM 100 MG CAPSULE PO SCH (08:11)
[2022-06-24] MEDS ORDERED: LOSARTAN 50 MG TABLET PO SCH (09:00)
[2022-06-24] MEDS ORDERED: TRIAMCINOLONE ACETONIDE 40 MG/1 ML VIAL MISC INJ ONE (10:00)
[2022-06-24] MEDS ORDERED: ROPIVACAINE 0.5% 30 ML VIAL MISC INJ ONE (10:00)
[2022-06-24 11:51] VITALS: BP 118/48
== END 2022-06-24 17:23 | disposition home health service (06) | DRG 184 ==
LOC: N.EDINP 14:30 → N.ED 14:30 → N.3E 19:22
PROVIDERS: ADMIT Surgery; ATTEND Surgery

== ENCOUNTER 2022-08-14 21:12 | Observation (INO) ==
[2022-08-14] MEDS ORDERED: SODIUM CHLORIDE 0.9% 1,000 ML IV STA (22:35)
[2022-08-14 23:12] LABS: Basophils % 0.7 % (0.0-0.8); Eosinophils # 0.3 10*3/uL (0.0-0.87); Eosinophils % 4.3 % (0.00-10.9); Hematocrit 36.2 VOL% (42.0-52.0); Hemoglobin 12.4 GM/DL (14.0-18.0); Immature Granulocytes % 0.5 %; Immature Granulocytes Absolute 0.03 #; Lymphocytes # 1.8 10*3/uL (1.4-4.0); Mean Corpuscular HGB Conc 34.3 GM/DL (32-36); Mean Platelet Volume 10.3 FL (9.6-12.0); Monocytes # 0.5 10*3/uL (0.11-0.8); Monocytes % 7.4 % (1.7-12.7); Neutrophils % 57.1 % (38.7-73.9); Platelet Count 198 T/CUMM (130-400); Red Blood Count 4.16 MC/CUMM (3.8-5.5); Red Cell Distribution Width 12.8 % (9.3-17.3); White Blood Count 6.1 T/CUMM (4-12)
[2022-08-14] MEDS ORDERED: INSULIN REGULAR 100 UNIT/ML IV STA (23:21)
[2022-08-14 23:32] LABS: PT Patient Result 11.4 SECS (10.1-12.1)
[2022-08-14 23:42] LABS: Alanine Aminotransferase 15 U/L (16-61); Alkaline Phosphatase 109 U/L (45-117); Aspartate Amino Transferase 10 U/L (0-37); Bilirubin,Total < 0.39 MG/DL (0.20-1.00); Blood Urea Nitrogen 23 MG/DL (7-18); Calcium 8.5 MG/DL (8.5-10.1); Carbon Dioxide 26 MMOL/L (21-32); Chloride 104 MMOL/L (98-107); Glucose 421 MG/DL (74-106); Osmolality,Calculated 298.5 MOS/KG (273-304); Potassium 3.8 MMOL/L (3.5-5.1); Sodium 139 MMOL/L (136-145); Thyroid Stimulating Hormone 0.743 uIU/ml (0.358-3.74)
[2022-08-15 00:29] LABS: Hyaline Casts,Urine 29 /LPF (0-3); Mucus,Urine Occasional /LPF (Occasional); RBC,Urine <1 /HPF (0-4); Squamous Epithelial Cell,Urine Occasional /HPF (0-10)
[2022-08-15 00:39] LABS: Barbiturates Screen,Urine Negative (Negative); Benzodiazepines Screen,Urine Negative (Negative); Cannabinoid Screen,Urine Negative (Negative); Opiate Screen,Urine Negative (Negative); Phencyclidine Screen,Urine Negative (Negative)
[2022-08-15 00:40] LABS: Protein,Urine Trace mg/dL (Negative); Urine Appearance Clear (Clear); Urine Color Yellow (Yellow); Urine pH 5.5 (4.5-8.0)
[2022-08-15 00:41] LABS: Bilirubin,Urine Negative (Negative); Blood, Urine Negative (Negative); Glucose,Urine (UA) 500 mg/dL (Negative); Ketones,Urine Trace mg/dL (Negative); Nitrite,Urine Negative (Negative); Urine Urobilinogen 0.2 eU/dL (<2.0)
[2022-08-15] MEDS ORDERED: hydrALAZINE 20 MG/1 ML VIAL IV PRN (02:17)
[2022-08-15] MEDS ORDERED: ACETAMINOPHEN 325 MG TABLET PO PRN (02:17)
[2022-08-15] MEDS ORDERED: GLUCAGON 1 MG VIAL IM PRN (02:17)
[2022-08-15] MEDS ORDERED: LACTULOSE 20 GM/30 ML UDCUP PO STA (02:17)
[2022-08-15] MEDS ORDERED: ONDANSETRON 4 MG/2 ML VIAL IV PRN (02:17)
[2022-08-15] MEDS ORDERED: hydrALAZINE 20 MG/1 ML VIAL IV STA (03:02)
[2022-08-15] MEDS ORDERED: NITROGLYCERIN SL 0.4 MG TABLET SL PRN (03:04)
[2022-08-15] MEDS ORDERED: DEXTROSE 10% 250 ML BAG IV PRN (03:07)
[2022-08-15 03:40] LABS: Hepatitis B Core IgM Quant 0.06 Index; Hepatitis B Surface Ag Quant < 0.10 Index; Hepatitis B Surface Ag Result Non-Reactive (NonReactive); Hepatitis C Virus Ab Quant 0.02 Index; Hepatitis C Virus Ab Result Non-Reactive (NonReactive)
[2022-08-15 06:13] LABS: Albumin 3.1 G/DL (3.4-5.0); Bilirubin,Total 0.4 MG/DL (0.20-1.00); Calcium 8.6 MG/DL (8.5-10.1); Osmolality,Calculated 286.3 MOS/KG (273-304); Potassium 3.6 MMOL/L (3.5-5.1); Total Protein 6.6 G/DL (6.4-8.2)
[2022-08-15] MEDS: INSULIN LISPRO 100 UNIT/ML SUBCUT SCH ×5 (06:39→21:58)
[2022-08-15 07:28] LABS: Risk Ratio 4.88; VLDL Cholesterol 56.4 MG/DL
[2022-08-15] MEDS: SODIUM CHLORIDE 0.9% 1,000 ML IV SCH ×3 (07:28→20:31)
[2022-08-15 07:35] LABS: Basophils % 0.5 % (0.0-0.8); Eosinophils # 0.3 10*3/uL (0.0-0.87); Eosinophils % 3.9 % (0.00-10.9); Hematocrit 37.9 VOL% (42.0-52.0); Hemoglobin 12.6 GM/DL (14.0-18.0); Lymphocytes # 1.2 10*3/uL (1.4-4.0); Lymphocytes % 15.6 % (21.2-54.2); Mean Corpuscular HGB Conc 33.2 GM/DL (32-36); Mean Corpuscular Volume 89.8 FL (87-102); Mean Platelet Volume 10.3 FL (9.6-12.0); Monocytes # 0.5 10*3/uL (0.11-0.8); Monocytes % 6.6 % (1.7-12.7); Platelet Count 190 T/CUMM (130-400); Red Blood Count 4.22 MC/CUMM (3.8-5.5); White Blood Count 7.8 T/CUMM (4-12)
[2022-08-15 07:49] LABS: Folate 14.26 NG/ML (5.38-24.0)
[2022-08-15] MEDS: LACTULOSE 20 GM/30 ML UDCUP PO SCH ×2 (08:24→21:20)
[2022-08-15] MEDS: PANTOPRAZOLE 40 MG TABLET PO SCH (08:24)
[2022-08-15] MEDS: ENOXAPARIN 40 MG/0.4 ML SYRINGE SUBCUT SCH (08:24)
[2022-08-15] MEDS: ATORVASTATIN 40 MG TABLET PO SCH (08:24)
[2022-08-15] MEDS: carvediloL 25 MG TABLET PO SCH ×2 (08:24→21:20)
[2022-08-15] MEDS: CLOPIDOGREL 75 MG TABLET PO SCH (08:24)
[2022-08-15] MEDS: ASPIRIN EC 81 MG TABLET PO SCH (08:26)
[2022-08-16] MEDS: SODIUM CHLORIDE 0.9% 1,000 ML IV SCH ×3 (01:21→09:33)
[2022-08-16] MEDS: INSULIN LISPRO 100 UNIT/ML SUBCUT SCH ×3 (02:46→12:59)
[2022-08-16 06:37] LABS: Calcium 8.1 MG/DL (8.5-10.1); Potassium 4.3 MMOL/L (3.5-5.1)
[2022-08-16 06:41] LABS: Basophils % 0.5 % (0.0-0.8); Eosinophils # 0.2 10*3/uL (0.0-0.87); Eosinophils % 3.6 % (0.00-10.9); Hematocrit 36.8 VOL% (42.0-52.0); Hemoglobin 12.4 GM/DL (14.0-18.0); Immature Granulocytes % 0.5 %; Immature Granulocytes Absolute 0.03 #; Lymphocytes # 1.5 10*3/uL (1.4-4.0); Lymphocytes % 21.9 % (21.2-54.2); Mean Corpuscular HGB Conc 33.7 GM/DL (32-36); Mean Corpuscular Volume 90.4 FL (87-102); Mean Platelet Volume 10.2 FL (9.6-12.0); Monocytes # 0.5 10*3/uL (0.11-0.8); Monocytes % 7.4 % (1.7-12.7); Neutrophils % 66.1 % (38.7-73.9); Platelet Count 160 T/CUMM (130-400); Red Blood Count 4.07 MC/CUMM (3.8-5.5); Red Cell Distribution Width 12.9 % (9.3-17.3); White Blood Count 6.6 T/CUMM (4-12)
[2022-08-16 06:48] LABS: % Iron Saturation 15.4 % (18-50)
[2022-08-16] MEDS: LACTULOSE 20 GM/30 ML UDCUP PO SCH (09:28)
[2022-08-16] MEDS: carvediloL 25 MG TABLET PO SCH (09:28)
[2022-08-16] MEDS: ENOXAPARIN 40 MG/0.4 ML SYRINGE SUBCUT SCH (09:29)
[2022-08-16] MEDS: ASPIRIN EC 81 MG TABLET PO SCH (09:29)
[2022-08-16] MEDS: PANTOPRAZOLE 40 MG TABLET PO SCH (09:29)
[2022-08-16] MEDS: CLOPIDOGREL 75 MG TABLET PO SCH (09:29)
[2022-08-16] MEDS: ATORVASTATIN 40 MG TABLET PO SCH (09:29)
[2022-08-16] MEDS ORDERED: LOSARTAN 25 MG TABLET PO SCH (10:30)
[2022-08-16 16:28] VITALS: BP 144/61
== END 2022-08-16 17:10 | disposition home health service (06) ==
LOC: N.ED 21:12 → N.EDINP 21:12 → N.2W 08-15 06:37
PROVIDERS: ADMIT Family Medicine; ATTEND Family Medicine